=== PATIENT | male | born 1990 | race Two or more races ===

== ENCOUNTER → 2023-06-02 | Outpatient (CLI) | payer BC, SELFPAY ==
[~2023-06-02] MED LIST: no home medications
[2023-06-02 17:39] LABS: BASO % 0.3 % (0.0-1.0); EOS # 0.2 10^3/uL (0.0-0.5); EOS % 3.5 % (0.0-3.0); HEMATOCRIT 46.2 % (42.0-52.0); HEMOGLOBIN 14.7 g/dl (13.5-17.5); LYMPH # 1.8 10^3/uL (1.5-5.0); LYMPH % 27.5 % (24.0-44.0); MEAN CORPUSCULAR HEMOGLOBIN 28.2 pg (27.0-33.0); MEAN CORPUSCULAR HGB CONC 31.8 g/dl (32.0-36.5); MEAN CORPUSCULAR VOLUME 88.5 fl (80.0-96.0); MONO # 0.6 10^3/uL (0.0-0.8); MONO % 9.4 % (2.0-8.0); NEUTROPHILS # 3.8 10^3/uL (1.5-8.5); NEUTROPHILS % 58.2 % (36.0-66.0); PLATELET COUNT, AUTOMATED 315 10^3/uL (150-450); RED BLOOD COUNT 5.22 10^6/uL (4.30-6.10); WHITE BLOOD COUNT 6.6 10^3/uL (4.0-10.0)
[2023-06-02 18:08] LABS: ALBUMIN 4.4 G/DL (3.2-5.2); ALKALINE PHOSPHATASE 58 U/L (46-116); ALT/SGPT 32 U/L (7.0-40); AST/SGOT 18 U/L (<34); BILIRUBIN,TOTAL 0.5 MG/DL (0.3-1.2); BLOOD UREA NITROGEN 11 MG/DL (9-23); CALCIUM LEVEL 9.7 MG/DL (8.5-10.1); CARBON DIOXIDE LEVEL 34 MMOL/L (20-31); CHLORIDE LEVEL 102 MMOL/L (98-107); CHOLESTEROL LEVEL 228 MG/DL (<200); CHOLESTEROL RISK RATIO 3.44 (<5); CREATININE FOR GFR 0.74 MG/DL (0.70-1.30); GLOMERULAR FILTRATION RATE > 60.0 (>60); GLUCOSE, FASTING 87 MG/DL (60-100); HDL CHOLESTEROL 66.1 MG/DL (>40); LDL CHOLESTEROL 147.1 MG/DL (<100); NON-HDL-C 161.9 MG/DL; POTASSIUM SERUM 4.6 MMOL/L (3.5-5.1); SODIUM LEVEL 139 MMOL/L (136-145); TOTAL PROTEIN 8.2 G/DL (5.7-8.2); TRIGLYCERIDES LEVEL 74 MG/DL (<150)
[2023-06-02 18:11] LABS: THYROID STIMULATING HORMONE 1.284 uIU/ML (0.55-4.78)
[2023-06-02 18:13] LABS: FREE T4 1.01 NG/DL (0.89-1.76)
== END ==
LOC: M PLALAB 15:08
PROVIDERS: ATTEND Nurse Practitioner Family
DX: R53.83 Other fatigue (principal); Z13.220 Encounter for screening for lipoid disorders; M54.50 Low back pain, unspecified; M54.2 Cervicalgia; M54.6 Pain in thoracic spine

== ENCOUNTER 2023-08-11 10:45 | Outpatient (RCR) | payer BC | END 2023-08-24 | LOC: M PT 10:45 | PROVIDERS: ATTEND Nurse Practitioner Family | DX: M54.2 Cervicalgia (principal); M54.6 Pain in thoracic spine; M54.50 Low back pain, unspecified ==

== ENCOUNTER → 2023-08-15 | Outpatient (CLI) | payer BC | LOC: M PLARAD 14:28 | PROVIDERS: ATTEND Nurse Practitioner Family | DX: M54.12 Radiculopathy, cervical region (principal); M48.02 Spinal stenosis, cervical region ==

== ENCOUNTER → 2023-09-24 | Outpatient (CLI) | payer BC | LOC: M PLAIMG 16:57 | PROVIDERS: ATTEND Physician Assistant | DX: R76.11 Nonspecific reaction to tuberculin skin test without active tuberculosis (principal) ==

== ENCOUNTER 2024-07-17 12:16 | Emergency (ER) | payer BC, OTHER ==
[~2024-07-17] VITALS: Ht 175.3 cm; Wt 83.2 kg
[2024-07-17 12:58] LABS: BASO % 0.4 % (0.0-1.0); EOS # 0.3 10^3/uL (0.0-0.5); EOS % 4.6 % (0.0-3.0); HEMATOCRIT 45.8 % (42.0-52.0); HEMOGLOBIN 15.1 g/dl (13.5-17.5); LYMPH # 1.4 10^3/uL (1.5-5.0); MEAN CORPUSCULAR HEMOGLOBIN 28.5 pg (27.0-33.0); MEAN CORPUSCULAR VOLUME 86.4 fl (80.0-96.0); MONO # 0.7 10^3/uL (0.0-0.8); MONO % 12.2 % (2.0-8.0); NEUTROPHILS # 3.2 10^3/uL (1.5-8.5); NEUTROPHILS % 57.6 % (36.0-66.0); PLATELET COUNT, AUTOMATED 292 10^3/uL (150-450); WHITE BLOOD COUNT 5.5 10^3/uL (4.0-10.0)
[2024-07-17 13:21] LABS: BLOOD UREA NITROGEN 8 MG/DL (9-23); CALCIUM LEVEL 9.3 MG/DL (8.5-10.1); CARBON DIOXIDE LEVEL 32 MMOL/L (20-31); CHLORIDE LEVEL 103 MMOL/L (98-107); CREATININE FOR GFR 0.74 MG/DL (0.70-1.30); GLOMERULAR FILTRATION RATE > 60.0 (>60); GLUCOSE, FASTING 95 MG/DL (60-100); POTASSIUM SERUM 4.2 MMOL/L (3.5-5.1); SODIUM LEVEL 141 MMOL/L (136-145)
[2024-07-17] MEDS ORDERED: ISOVUE-370 76% 100ML VIAL As Ordered ONE (14:02)
[2024-07-17 14:39] LABS: LIPASE 34 U/L (12-53)
[2024-07-17 14:41] LABS: ALKALINE PHOSPHATASE 61 U/L (40-129); ALT/SGPT 33 U/L (7.0-40); AST/SGOT 19 U/L (<34); BILIRUBIN,DIRECT 0.2 MG/DL (<0.4); BILIRUBIN,TOTAL 0.5 MG/DL (0.3-1.2); TOTAL PROTEIN 8.2 G/DL (5.7-8.2)
[2024-07-17] MEDS: LIDOCAINE 5% (LIDODERM) PATCH TD ONE (15:12)
[2024-07-17] MEDS: KETOROLAC 30 MG/ML 1ML VIAL IV ONE (15:13)
[2024-07-17] MEDS: NS (Normal Saline) 0.9% 1,000 ML IV ONE (15:13)
[2024-07-17] MEDS: ONDANSETRON 4MG 2ML VIAL IV ONE (15:13)
[2024-07-17] MEDS ORDERED: METH-1165 PO (16:21)
[2024-07-17 16:45] VITALS: BP 133/83; TEMP 97.1; O2SAT 99
== END 2024-07-17 16:59 | disposition home or self-care (01) ==
LOC: M ED 12:16
DX: B34.2 Coronavirus infection, unspecified (principal); M54.89 Other dorsalgia; R10.12 Left upper quadrant pain
CPT/HCPCS: 74177; 80047; 80048; 80076; 83605; 83690; 85025; 87486; 87581; 87633; 87798; 96361; 96374; 96375; 99284; J1885; J2405; Q9967

== ENCOUNTER → 2024-09-23 | Outpatient (CLI) | payer OTHER ==
[~2024-09-23] MED LIST changes: +METH-1165 PO
[2024-09-23 19:05] LABS: BASO % 0.3 % (0.0-1.0); EOS # 0.1 10^3/uL (0.0-0.5); EOS % 2.1 % (0.0-3.0); HEMATOCRIT 44.8 % (42.0-52.0); HEMOGLOBIN 14.5 g/dl (13.5-17.5); LYMPH # 1.6 10^3/uL (1.5-5.0); LYMPH % 27.5 % (24.0-44.0); MEAN CORPUSCULAR HEMOGLOBIN 28.5 pg (27.0-33.0); MEAN CORPUSCULAR HGB CONC 32.4 g/dl (32.0-36.5); MEAN CORPUSCULAR VOLUME 88.2 fl (80.0-96.0); MONO # 0.6 10^3/uL (0.0-0.8); MONO % 10.8 % (2.0-8.0); NEUTROPHILS # 3.5 10^3/uL (1.5-8.5); PLATELET COUNT, AUTOMATED 336 10^3/uL (150-450); RED BLOOD COUNT 5.08 10^6/uL (4.30-6.10); WHITE BLOOD COUNT 5.9 10^3/uL (4.0-10.0)
[2024-09-23 19:43] LABS: THYROID STIMULATING HORMONE 0.409 uIU/ML (0.55-4.78)
[2024-09-23 19:44] LABS: ALBUMIN 4.1 G/DL (3.2-5.2); ALKALINE PHOSPHATASE 61 U/L (40-129); ALT/SGPT 27 U/L (7.0-40); AST/SGOT 18 U/L (<34); BILIRUBIN,TOTAL 0.5 MG/DL (0.3-1.2); BLOOD UREA NITROGEN 12 MG/DL (9-23); CALCIUM LEVEL 9.6 MG/DL (8.5-10.1); CARBON DIOXIDE LEVEL 33 MMOL/L (20-31); CHLORIDE LEVEL 101 MMOL/L (98-107); CHOLESTEROL LEVEL 208 MG/DL (<200); CHOLESTEROL RISK RATIO 3.57 (<5); CREATININE FOR GFR 0.85 MG/DL (0.70-1.30); FREE T4 1.18 NG/DL (0.89-1.76); GLOMERULAR FILTRATION RATE > 90.0 (>60); GLUCOSE, FASTING 78 MG/DL (60-100); HDL CHOLESTEROL 58.2 MG/DL (>40); LDL CHOLESTEROL 134.4 MG/DL (<100); NON-HDL-C 149.8 MG/DL; POTASSIUM SERUM 4.4 MMOL/L (3.5-5.1); SODIUM LEVEL 143 MMOL/L (136-145); TRIGLYCERIDES LEVEL 77 MG/DL (<150)
== END ==
LOC: M PLAIMG 16:12
PROVIDERS: ATTEND Nurse Practitioner Family
DX: Z00.00 Encounter for general adult medical examination without abnormal findings (principal); M54.50 Low back pain, unspecified; E78.2 Mixed hyperlipidemia; R53.83 Other fatigue

== ENCOUNTER → 2024-12-21 | Outpatient (CLI) | payer OTHER | LOC: M PLAIMG 15:12 | PROVIDERS: ATTEND Physician Assistant | DX: M47.22 Other spondylosis with radiculopathy, cervical region (principal); M50.21 Other cervical disc displacement, high cervical region; M50.221 Other cervical disc displacement at C4-C5 level; M50.222 Other cervical disc displacement at C5-C6 level; M50.223 Other cervical disc displacement at C6-C7 level; M50.23 Other cervical disc displacement, cervicothoracic region; M46.02 Spinal enthesopathy, cervical region ==